=== PATIENT | female | born 1985 | race Caucasian/White ===

== ENCOUNTER 2020-03-20 03:53 | Inpatient (IN) | payer SELFPAY ==
[2020-03-20] VITALS (62 sets, daily range): BP systolic 98–155; BP diastolic 53–96; PULSE 55–118; RESP 16; TEMP 36.6–37.3; O2SAT 98–100; BMI 29.4
[2020-03-20 03:53] LABS: ROM Internal Control Test YES-OK TO RESULT pt. (Internal QC); ROM Patient Test POSITIVE (Negative)
[2020-03-20] MEDS: Lactated Ringers 1,000 ML 200 ML IV ×2 (04:40→10:32)
[2020-03-20] MEDS: Lactated Ringers 500 ML 999 ML IV ×2 (04:49→06:02)
[2020-03-20 05:05] LABS: Absolute Lymphocyte Count 2.11 X10^3/uL (0.83-4.51); Absolute Neutrophil Count 12.9 X10^3/uL (2.0-7.7); Basophil# 0.04 X10^3/uL; Basophil% 0.2 % (0-1); Eosinophils% 0.6 % (0-5); Hematocrit 38.9 % (37-47); Hemoglobin 12.5 g/dL (12.0-15.0); Lymphocyte # 2.11 X10^3/ul (4.0); Lymphocyte % 13.1 % (19-41); Mean Corp Hgb Conc 32.1 g/dL (32-36); Mean Corpuscular Hgb 28.7 pg (27.0-32.0); Mean Corpuscular Volume 89.2 fL (81-99); Mean Platelet Vol. 11.4 fl (6.2-12.0); Monocyte# 0.89 X10^3/uL; Monocyte% 5.5 % (0-10); NRBC Flagged by Analyzer 0 % (0-5); Neutrophil # 12.87 X10^3/uL (2.7-7.7); Neutrophil % 80.2 % (47-70); Platelet Count 275 K/mm3 (150-450); RBC Distribution Width SD 46.1 fl (35.1-43.9); Red Blood Count 4.36 M/mm3 (4.2-5.4); White Blood Count 16.1 K/mm3 (4.4-11.0)
[2020-03-20 05:27] LABS: Amphetamine Urine VISTA NEGATIVE (<1000 ng/mL); Barbiturate Urine VISTA NEGATIVE (< 200 ng/mL); Benzodiazepine Urine VISTA NEGATIVE (< 200 ng/mL); Cocaine Urine VISTA NEGATIVE (< 300 ng/mL); Ecstacy Urine VISTA NEGATIVE (< 500 ng/mL); Methadone Urine VISTA NEGATIVE (< 300 ng/mL); PCP Urine VISTA NEGATIVE (< 25 ng/mL); THC Urine VISTA NEGATIVE (< 50 ng/mL); Vista UDS pH Range 6
[2020-03-20] MEDS: fentaNYL-bupivacaine (epidural) 100 ML BAG EPIDURAL ×2 (06:46→11:40)
[2020-03-20] MEDS: Oxytocin 30 units/NS 500 ml 30 UNITS/500 ML IV.SOLN IV (07:58)
--- NOTE | 2020-03-20 09:20 | PCM.HP.OB ---
History Date of Admission: 03/20/20 Final СВЕТЛАНА: 03/18/20 Gestational age: 40 Weeks and 2 Days History of this : This is a 34 year-old, G 1P0 at 40.2 weeks gestation presents with spontaneous rupture membranes in early labor. Patient denies headaches visual changes. Patient has an uncomplicated . Allergies No Known Allergies Allergy (Verified 03/20/20 03:33) Home Medications: Home Medications Acetaminophen [Tylenol Extra Strength] 500 - 1,000 mg PO Q6H PRN PRN 03/20/20 Vits [Prenatabs FA] 1 tab PO DAILY 03/20/20 Pyridoxine HCl (Vitamin B6) [Vitamin B-6] 50 mg PO DAILY 03/20/20 Smoking Status: Current every day smoker Alcohol: None Substance Use Type: Marijuana Number of Fetus(es): 1 NST - FHR Rate Baby A Baseline: 140 Variability:: Moderate Accelerations:: 15 x 15 Decelerations:: None NST Reactive:: Yes FHR Category:: Category I Uterine Activity:: 2-7 History Past Pregnancies: Past Pregnancies Delivery Date Name GA/ Weeks Outcome Route Wt Sex Labor Length Anesthesia Delivery Location Provider FOB Review of Systems Constitutional: Denies: Anorexia HEENT: Denies: Difficulty Hearing, Head Aches Cardiovascular: Denies: Chest Pain Gastrointestinal: Reports: Abdominal Pain Physical Exam Vitals: Vital Signs Temp Pulse BP Pulse Ox 98.3 F 66 101/59 L 100 03/20/20 07:34 03/20/20 08:33 03/20/20 08:33 03/20/20 08:33 General: Alert, Oriented x3 Abdomen: Soft, Non-Distended, Gravid Neurological: Cranial nerves II-XII grossly intact Assessment/Plan This is a 34 year-old, @ 40.2 weeks, in labor admit to L&D monitor FHR/TOCO anticipate Epidural for pain mgmt augment with pitocin
[2020-03-20] MEDS: Oxytocin 30 units/NS 500 ml 30 UNITS/500 ML IV.SOLN 334 UNITS IV (13:49)
--- NOTE | 2020-03-20 14:00 | PCM.OPRPT ---
Vaginal Delivery Maternal Presentation: Active Labor, Spontaneous Rupture of Membranes Amniotic Membrane Rupture Type: Spontaneous at home Amniotic Fluid Description: Clear Final СВЕТЛАНА: 03/18/20 Final СВЕТЛАНА Source: [place] <20 weeks Gestational age: 40 Weeks and 2 Days Date of Procedure: 03/20/20 Pre-Operative Diagnosis: postterm gestation, active labor Post-Operative Diagnosis: same, live male Surgery/ Procedure Performed: Spontaneous Vaginal Delivery Type of Anesthesia: Epidural Description of Procedure: of live male born without complication. Head was delivered with good maternal pushing efforts. Then good maternal pushing efforts with gentle downward traction delivered the anterior followed by the posterior shoulder. The was then placed on the mother for immediate skin to skin. Delayed cord clamping was performed. Placenta delivered intact without difficulty. Second-degree laceration appreciated. This was repaired using 2-0 Vicryl. Patient tolerated well. No complications. Presentation: Vertex Placental Delivery Description: Spontaneous Placenta Disposition: [facility] Cord Entanglement: None Drain: Flood to straight drain Estimated Blood Loss: 150 Infant A gender: Male (1 minute): 9 (5 minute): 9 Episiotomy Description: None Laceration: Perineal Extension/lac, 2nd degree Medications given after delivery: IV Pitocin Complications: None
[2020-03-20] MEDS: Acetaminophen 500 MG Tablet 1000 MG PO (14:47)
[2020-03-20] MEDS: 0.9% Saline Lock 10 ML Syringe IV (16:37)
[2020-03-20] MEDS: Ibuprofen 600 MG Tablet PO (19:23)
[2020-03-21 05:45] VITALS: BP 111/64; PULSE 74; RESP 16; TEMP 36.3
[2020-03-21 08:00] VITALS: BP 117/79; PULSE 75; RESP 16; TEMP 36.3
[2020-03-21] MEDS: Ibuprofen 600 MG Tablet PO (09:00)
[2020-03-21 12:00] VITALS: BP 123/78; PULSE 88; RESP 16; TEMP 36.6
--- NOTE | 2020-03-21 15:46 | PCM.PN.OB ---
Subjective: Doing well per patient and nursing staff. Ambulating and taking PO without difficulty. Voiding and passing flatus. . lochia normal. Discharge home today. - Physical Exam Vitals/I&O's: Vital Signs Temp Pulse Resp BP Pulse Ox 97.9 F 88 16 123/78 H 100 03/21/20 12:00 03/21/20 12:00 03/21/20 12:00 03/21/20 12:00 03/20/20 13:03 Oxygen Delivery Method Room Air Weight: 166 lb 0.129 oz Body Mass Index (BMI) 29.4 Intake and Output for Last 24 Hours 03/19/20 03/20/20 03/21/20 23:59 23:59 23:59 Intake Total 3398.73 / 3398.73 Output Total 1250 / 1250 900 / 900 Balance 2148.73 / 2148.73 -900 / -900 General: Alert, Oriented x3, Cooperative HEENT: Atraumatic, Normocephalic Neck: Trachea Midline Lungs: Clear to auscultation, Normal air movement, No rhonchi, No wheeze Cardiovascular: Regular rate, Regular Rhythm, No murmurs Abdomen: Bowel Sounds Present, Soft - fundus firm 2 below U Extremities: No edema Current Medications Acetaminophen (Tylenol) 1,000 mg PO Q8H PRN PRN PRN Reason: Pain Score 1-3/10 Last Admin: 03/20/20 14:47 Dose: 1,000 mg Documented by: Bisacodyl (Dulcolax) 10 mg RECTAL UD PRN PRN Reason: If no BM Dibucaine (Dibucaine) 1 applic TOPICAL TID PRN PRN; Protocol PRN Reason: Discomfort Hydrocortisone (Hytone) 1 applic TOPICAL TID PRN PRN; Protocol PRN Reason: Discomfort Ibuprofen (Motrin) 600 mg PO Q6H PRN PRN PRN Reason: Pain Score 1-3/10 Last Admin: 03/21/20 09:00 Dose: 600 mg Documented by: Methylergonovine Maleate (Methergine) 0.2 mg IM X1 PRN PRN Reason: Excess bleeding/uterine atony Ondansetron HCl (Zofran) 4 mg IV Q4H PRN PRN PRN Reason: Nausea Oxycodone HCl (Oxyir) 5 - 10 mg PO Q4H PRN PRN PRN Reason: Pain Score 4-10/10 Senna/Docusate Sodium (Senokot-S, Sindi-Colace) 1 - 2 tablet PO DAILY PRN PRN PRN Reason: Constipation Simethicone (Mylicon) 80 mg PO PCHS PRN PRN Reason: Indigestion/Stomach pain Sodium Chloride () 5 - 15 ml IV UD PRN PRN Reason: SALINE FLUSH Last Admin: 03/20/20 16:37 Dose: 10 ml Documented by: Medical Necessity - Tobacco Use Smoking Status: Current every day smoker Assessment/Plan A:PPD #1 Second degree perineal laceration P: 1) Routine and instructions. 2) Motrin for pain 3) Follow up in 2 weeks virtual visit and 6 wk PP visit.
--- NOTE | 2020-03-21 15:52 | DCINST_ITS ---
Discharge Diet: No Restrictions Discharge Activity: Return to Normal Activity, May not drive while taking narcotic pain medications., May Shower May resume sexual activity in: 4-6 weeks Weight Bearing Status: Weight bearing as tolerated Additional Activity Instructions:: Nothing in the vagina for 4-6 weeks. You may return to work/school in 6 weeks. Call your doctor if your incision/area has: Continuous Slow Oozing, Sudden Increased Bleeding, Increased Pain/ Swelling, Increased Redness, Foul Smelling Discharge Additional Instructions: If you experience any of the following, contact your healthcare provider. * Bleeding that soaks a pad every hour for 2 hours * Fever 100.4 or higher * Unrelieved incision or abdominal pain * Swelling, redness, discharge or bleeding from your incision or episiotomy site * Your incision begins to separate * Problems urinating (including inability to urinate or burning while urinating). * Visual changes * Severe headache * Flu-like symptoms * Pain or redness in one of both of your breasts * Pain, warmth, tenderness or swelling in your legs, especially the calf area * Frequent nausea and vomiting * Symptoms of depression or anxiety If you experience any of the following, call 911 or go to the nearest Emergency Room. * Chest pain * Problems breathing * Seizure activity * Partial or complete paralysis of a body part, slurred speech, weakness or drooping of the face, or a sudden inability to walk or hold your balance Allergies/Adverse Reactions: Allergies No Known Allergies Allergy (Verified 03/20/20 03:33) Medications to take at Discharge Acetaminophen [Tylenol] 500 - 1,000 mg PO Q6H PRN PRN 03/20/20 Vits [Prenatabs FA ] 1 tab PO DAILY 03/20/20 Ibuprofen [Motrin] 600 mg PO Q6H PRN PRN #30 tab 03/21/20 The following prescriptions were given: Ibuprofen [Motrin] 600 mg PO Q6H PRN PRN #30 tab PRN Reason: Pain Score 1-3/10 Transmission Status: Pending to [facility] Please Follow Up With: Anna Strickland MD When: Call to make an appointment with your doctor in 6 weeks. If you had elevated Blood Pressure or 4th degree laceration you will need to be seen in 2 weeks. Test Results: Test results from this visit will be discussed in further detail at your follow- up appointment, if applicable.
== END 2020-03-21 17:00 | disposition home or self-care (01) | DRG 807 ==
LOC: WPOUT 04:00 → WP 13:55
PROVIDERS: Admitting Provider Obstetrics & Gynecology; Referring Provider Obstetrics & Gynecology; Visit Provider Obstetrics & Gynecology
DX: O48.0 Post-term pregnancy (principal); Z37.0 Single live birth; O42.92 Full-term premature rupture of membranes, unspecified as to length of time between rupture and onset of labor; O99.334 Smoking (tobacco) complicating childbirth; F17.210 Nicotine dependence, cigarettes, uncomplicated; O70.1 Second degree perineal laceration during delivery; Z3A.40 40 weeks gestation of pregnancy
CPT/HCPCS: 59025; 59050; 80307; 84112; 85025; 86850; 86900; 86901; 99218; J7120; A4216; G0378

== ENCOUNTER 2022-01-14 21:25 | Emergency (ER) | payer BC, SELFPAY ==
[2022-01-14 21:27] VITALS: BP 125/107; PULSE 123; RESP 20; TEMP 36.2; O2SAT 99; BMI 26.6
--- NOTE | 2022-01-14 21:54 | EDS_ITS ---
HPI <Dr. True Rodriguez MD - Last Filed: 01/14/22 22:00> History of Present Illness Chief Complaint: Anxiety Informant: patient and family Narrative Narrative: This patient just came in when her family called about her father in the [facility] department. When she got here she found out that her father had shot himself in the head and was . She immediately started hyperventilating. She is very distraught. She just lost her mother about a month ago and has been dealing with this. She states she is not suicidal. She just cannot calm down. She felt fine until she learned this bad news. She does not have a history of psychiatric disease or anxiety. She just has 2 major life events that have occurred in the last month. She has been feeling fine recently. PFSH <Dr. True Rodriguez MD - Last Filed: 01/14/22 22:00> [facility] Medical History Anxiety Depression Smoker Home Medications vits,calcium no.78-iron fumarate-folic acid 29 mg-1 mg tablet 1 tab PO DAILY 03/20/20 [History Last Taken 03/19/20 10:00] lorazepam 1 mg tablet (Ativan) 1 mg PO BID PRN anxiety 3 days #6 tabs 01/14/22 [Rx Last Taken Unknown] Allergy/AdvReac Type Severity Reaction Status Date / Time No Known Allergies Allergy Verified 03/20/20 03:33 Social History Smoking Status: Current every day smoker tobacco type: cigarettes ROS <Dr. True Rodriguez MD - Last Filed: 01/14/22 22:00> ROS ED Constitutional Constitutional ED: Denies chills or fever(s) Eyes Eyes: Denies change in vision ENT ENT ED: Denies rhinorrhea or sore throat Cardiovascular Cardiovascular: Denies chest pain, palpitations or racing heartbeat Respiratory/Chest Respiratory/Chest: Reports dyspnea Gastrointestinal Gastrointestinal: Denies nausea or vomiting Musculoskeletal Musculoskeletal: Denies back pain or neck pain Integumentary Denies rash Neurologic Neurologic: Denies headache(s) or paresthesias Psychiatric Psychiatric: Reports anxiety; Denies suicidal ideation or suicidal thoughts Endocrine Endocrinology: Denies polydipsia or polyuria Hematologic/Lymphatic Hematologic/Lymphatic: Denies easy bleeding or easy bruising Allergic/Immunologic Allergic/Immunologic ED: Denies urticaria EXAM <Dr. True Rodriguez MD - Last Filed: 01/14/22 22:00> Physical Exam Const Vital Signs: 01/14/22 21:27 Temperature 97.1 F L Temperature Source Temporal Pulse Rate 123 H Respiratory Rate 20 H Blood Pressure 125/107 H Blood Pressure Mean 113 Pulse Ox 99 Oxygen Delivery Method Room Air Positive well nourished and well developed Constitutional Narrative: Patient is breathing quickly. She is crying. She has 2 family members with her who are very supportive. General Appearance ED: well developed HEENT Reports moist mucous membranes Eyes General Eye ED: Negative for pale conjunctiva or scleral icterus Chest Wall inspection of chest normal Resp normal respiratory effort and clear to auscultation bilaterally Resp Narrative: Respiratory rate is increased. But she is moving air well. No wheezing or rhonchi. No asymmetry of breath sounds. Auscultation: Negative for rales, rhonchi or wheezes Cardio regular rhythm; Negative for regular rate Rate: tachycardic GI normal to inspection, nondistended, normoactive bowel sounds, non-tender and non-distended Back/Spine no CVA tenderness Extremity normal to inspection Neuro oriented x3 Psych Psych Narrative: Patient is tearful. She is breathing quickly. But she is alert and oriented. She denies suicidal thoughts. She is just very stressed and tearful due to the significant events. Skin no rashes or lesions noted <Dr. Nickolas Young, - Last Filed: 01/14/22 23:27> Physical Exam Const Vital Signs: 01/14/22 21:27 Temperature 97.1 F L Temperature Source Temporal Pulse Rate 123 H Respiratory Rate 20 H Blood Pressure 125/107 H Blood Pressure Mean 113 Pulse Ox 99 Oxygen Delivery Method Room Air MDM <Dr. True Rodriguez MD - Last Filed: 01/14/22 22:00> [facility] Narrative Medical decision making narrative: Patient felt fine until she heard what happened to her father. No history of heart disease. Although her med record says depression and anxiety she denies this to me. That might have just been added today. We will get her dose of Ativan to see if we can get her feeling a bit better. States <Dr. Nickolas Young DO - Last Filed: 01/14/22 23:27> [facility] Narrative Medical decision making narrative: Patient felt fine until she heard what happened to her father. No history of heart disease. Although her med record says depression and anxiety she denies this to me. That might have just been added today. We will get her dose of Ativan to see if we can get her feeling a bit better. States Le: Signed out to me status post Ativan due to acute anxiety attack due to losing her father in the ED. She lost her mother a month ago. She had no suicidal homicidal ideations. She is monitored improving symptoms. She has prescription for benzodiazepines sent to her pharmacy for acute use. She will follow-up as an outpatient. Discharge Plan Triage Chief Complaint: Anxiety ED Provider: True Rodriguez Dx/Rx/DC Orders Clinical Impression: Acute stress reaction, Panic attack Instructions: ED Anxiety Reaction Prescriptions: New lorazepam [Ativan] 1 mg tablet 1 mg PO BID PRN (Reason: anxiety) 3 Days Qty: 6 0RF No Action vit,[id number] 1 TABLET tablet 1 tab PO DAILY Primary Care Provider: Care Physician,No Primary Referrals: Sharad Randle MD [STAFF PHYSICIAN] - 3-5 Days if not improving Care Physician,No Primary [Primary Care Provider] - Disposition Disposition: Home, Self Care
[2022-01-14] MEDS: LORazepam 2 MG/ML Syringe IM (21:59)
[2022-01-14 23:33] VITALS: BP 118/78; PULSE 89; RESP 16; O2SAT 98
== END 2022-01-15 | disposition home or self-care (01) ==
PROVIDERS: Emergency Provider Emergency Medicine; Visit Provider Emergency Medicine
DX: F43.0 Acute stress reaction (principal); F41.0 Panic disorder [episodic paroxysmal anxiety]; F17.210 Nicotine dependence, cigarettes, uncomplicated; F32.A Depression, unspecified
CPT/HCPCS: 96372; 99282

== ENCOUNTER → 2022-10-08 | Outpatient (CLI) | payer BC, SELFPAY ==
[2022-10-08 18:27] LABS: Anion Gap 4 (5-15); BUN 6 mg/dL (7-18); BUN/Creat Ratio 7.8 RATIO (10-20); Calcium,Total 8.9 mg/dL (8.5-10.1); Chloride 110 mmol/L (98-107); Cholesterol 248 mg/dL (200); Creatinine, Serum 0.77 mg/dL (0.55-1.02); EST Glomerular Filtration Rate 91 mL/min (>60); Est Glom Filt Rate - Afr Amer 110 mL/min (>60); Glucose 109 mg/dL (74-106); High Density Lipoprotein 42 mg/dL; Potassium 3.6 mmol/L (3.5-5.1); Sodium Level 137 mmol/L (136-145); Triglycerides 147 mg/dL; Very Low Density Lipoprotein 29 mg/dL (5-40)
== END | disposition home or self-care (01) ==
LOC: MFPLAB 16:03
PROVIDERS: Visit Provider Family Medicine
DX: Z00.00 Encounter for general adult medical examination without abnormal findings (principal)
CPT/HCPCS: 36415; 80048; 80061; 82306